=== PATIENT | male | born 1960 | race Two or more races ===

== ENCOUNTER 2019-04-11 20:47 | Emergency (ER) | payer OTHER ==
[~2019-04-11] VITALS: Ht 175.3 cm; Wt 78.0 kg
[2019-04-11] MEDS ORDERED: METFORMIN HCL850 MG PO (21:42)
[2019-04-11] MEDS ORDERED: GLIPIZIDE10 MG PO (21:42)
[2019-04-11] MEDS ORDERED: LANTUS SOL100 UNIT/1 SUBCUTANEO (21:42)
== END 2019-04-11 22:50 | disposition home or self-care (01) ==
LOC: ER 20:47
DX: S00.33XA Contusion of nose, initial encounter (principal); S60.222A Contusion of left hand, initial encounter; S60.221A Contusion of right hand, initial encounter; S80.02XA Contusion of left knee, initial encounter; S80.01XA Contusion of right knee, initial encounter; V49.9XXA Car occupant (driver) (passenger) injured in unspecified traffic accident, initial encounter; Y93.89 Activity, other specified; Y92.488 Other paved roadways as the place of occurrence of the external cause; Y99.8 Other external cause status